=== PATIENT | female | born 1945 | race Caucasian/White ===

== ENCOUNTER 2016-12-07 13:12 | Observation (INO) | payer MEDICARE ==
[2016-12-07 17:22] LABS: Hematocrit 46 % (35-47); Hemoglobin 15.5 g/dl (12.0-16.0); Mean Corpuscular HGB Conc 34 g/dl (31-36); Mean Corpuscular Hemoglobin 31 pg (27-31); Mean Corpuscular Volume 91 fL (80-97); Mean Platelet Volume 10 um3 (7.4-10.4); Red Blood Count 5.02 10^6/ul (4.0-5.4); Red Cell Distribution Width 13 % (10.5-15); White Blood Count 8.9 10^3/ul (3.5-10.8)
[2016-12-07 17:23] LABS: Urine Bilirubin Negative (Negative); Urine Glucose Negative (Negative); Urine Nitrite Negative (Negative)
[2016-12-07 17:35] LABS: Albumin 4.1 g/dL (3.2-5.2); BUN/Creatinine Ratio 19.2 (8-20); Calcium 9.9 mg/dL (8.6-10.3); EGFR African American 67.4 (>60); EGFR Non-African American 52.4 (>60); Globulin 3.5 g/dL (2-4); Total Bilirubin 0.3 mg/dL (0.2-1.0); Total Protein 7.6 g/dL (6.4-8.9)
[2016-12-07 17:38] LABS: Potassium 4.3 mmol/L (3.5-5.0)
[2016-12-07 17:46] LABS: TSH (Thyroid Stimulating Horm) 0.23 mcIU/mL (0.34-5.60)
[2016-12-07] MEDS ORDERED: Ibuprofen TAB* 600 MG PO ONE (18:02)
--- NOTE | 2016-12-07 18:38 | RAD ---
HISTORY: Chest pain COMPARISONS: September 10, 2016 VIEWS:1: Single frontal portable view of the chest at 5:50 PM FINDINGS: LINES AND TUBES: None. CARDIOMEDIASTINAL SILHOUETTE: The cardiomediastinal silhouette is normal for portable technique. PLEURA: The costophrenic angles are sharp. No pleural abnormalities are noted. LUNG PARENCHYMA: The lungs are clear. ABDOMEN: The upper abdomen is clear. There is no subphrenic gas. BONES AND SOFT TISSUES: No bone or soft tissue abnormalities are noted. IMPRESSION: NO ACTIVE CARDIOPULMONARY DISEASE.
[2016-12-07] MEDS ORDERED: Albuterol HFA INHALER* 8 gm MDI INH PRN (18:40)
[2016-12-07] MEDS ORDERED: LORazepam INJ* 2 MG/ML 1 ML VIAL IV PUSH PRN (18:45)
[2016-12-07 18:46] LABS: Free T3 3.2 pg/mL (2.5-3.9)
[2016-12-07 18:47] LABS: Free T4 0.93 ng/dL (0.61-1.12)
--- NOTE | 2016-12-07 19:52 | ED ---
Nikhil Hardy Billy, scribed for Ata Lozano MD on 12/07/16 at 1555 . HPI Chest Pain - HPI Summary HPI Summary: Patient is a 71 year-old female coming to [facility] presenting with constant left anterior chest pain starting 3 days ago. Severity 8/10. Pain radiates to the epigastrium and neck. Pain is worse with movement of the chest wall. She reports nausea but denies any SOB, near-syncope, or vomiting. She states that she recently started taking Metoprolol 25mg BID. - History of Current Complaint Chief Complaint: EDChestWallPain Time Seen by Provider: 12/07/16 15:50 Hx Obtained From: Patient Onset/Duration: Started Days Ago, Still Present Timing: Constant Initial Severity: Moderate Current Severity: Moderate Pain Intensity: 8 Pain Scale Used: 0-10 Numeric Chest Pain Location: Left Anterior Chest Pain Radiates: Yes Chest Pain Radiates To:: Neck, Epigastric Aggravating Factor(s): Movement Alleviating Factor(s): Nothing Associated Signs and Symptoms: Positive: Nausea. Negative: Shortness of Breath , Syncope, Vomiting - Allergy/Home Medications Allergies/Adverse Reactions: Allergies Allergy/AdvReac Type Severity Reaction Status Date / Time Cephalexin [From Keflex] Allergy Severe Anxiety Verified 12/07/16 16:09 Codeine Allergy Intermediate Anxiety Verified 12/07/16 16:09 Bupropion [From Wellbutrin] Allergy Anxiety Verified 12/07/16 16:09 Dipyridamole [From Aggrenox] Allergy Anxiety Verified 12/07/16 16:09 Ezetimibe [From Vytorin] Allergy Anxiety Verified 12/07/16 16:09 Fenofibrate Allergy Anxiety Verified 12/07/16 16:09 [From Tricor 145mg] Fish Allergy Allergy Hives/Diff. Verified 12/07/16 16:09 Breathing/I tching Fluoxetine [From Prozac] Allergy Anxiety Verified 12/07/16 16:09 Gabapentin [From Neurontin] Allergy Anxiety Verified 12/07/16 16:09 Lecithin [From Tricor 145mg] Allergy Anxiety Verified 12/07/16 16:09 Moxifloxacin [From Avelox] Allergy Anxiety Verified 12/07/16 16:09 Naproxen Allergy Unknown Verified 12/07/16 16:09 Reaction Details Nefazodone [From Serzone] Allergy Anxiety Verified 12/07/16 16:09 Paroxetine [From Paxil] Allergy Anxiety Verified 12/07/16 16:09 Penicillin G Allergy Hives Verified 12/07/16 16:09 Simvastatin [From Vytorin] Allergy Anxiety Verified 12/07/16 16:09 Sulfa Drugs Allergy Hives Verified 12/07/16 16:09 Tetanus Toxoids Allergy orthrostati Verified 12/07/16 16:09 c Venlafaxine [From Effexor] Allergy Anxiety Verified 12/07/16 16:09 Aspirin [From Aggrenox] AdvReac Mild Anxiety Verified 12/07/16 16:09 Home Medications: Home Medications Metoprolol Tartrate TAB* [Lopressor TAB*] 1 tab PO BID 12/07/16 [History Confirmed 12/07/16] PMH/Surg Hx/FS Hx/Imm Hx Endocrine/Hematology History: Reports: Hx Anticoagulant Therapy - asa 81mg po daily, Hx Diabetes, Hx Thyroid Disease - hypothyroid Denies: Hx Sickle Cell Disease Cardiovascular History: Reports: Hx Hypertension Denies: Hx Congestive Heart Failure, Hx Pacemaker/ICD Comment Only: Other Cardiovascular Problems/Disorders - r Respiratory History: Reports: Hx Asthma, Hx Chronic Obstructive Pulmonary Disease (COPD) - emphysema, Other Respiratory Problems/Disorders - copd GI History: Reports: Hx Gastroesophageal Reflux Disease, Hx Hiatal Hernia, Hx Irritable Bowel, Hx Jaundice - childhood, Other GI Disorders - IBS, Hiatal Hernia History: Denies: Hx Renal Disease Musculoskeletal History: Reports: Hx Arthritis, Other Musculoskeletal History - fractured sternum Sensory History: Reports: Hx Contacts or Glasses - GLASSES Denies: Hx Hearing Aid Opthamlomology History: Reports: Hx Contacts or Glasses - GLASSES Neurological History: Denies: Hx Dementia, Hx Seizures, Other Neuro Impairments/Disorders Psychiatric History: Reports: Hx Anxiety - PANIC ATTACKS, Hx Depression Denies: Hx Substance Abuse - Cancer History Cancer Type, Location and Year: UTERINE 2013 Hx Chemotherapy: No - UTERINE CANCER 2013 Hx Radiation Therapy: No - Surgical History Surgery Procedure, Year, and Place: right ovary 1975, [facility], appy 1975, [facility], tubal 1975 d&c, 1975, gallbladder, 1977, [facility], cyst rght breast,20 YEARS AGO , multiple Hx Anesthesia Reactions: Yes - NAUSEA WITH GALLBLADDER SURGERY - Immunization History Date of Tetanus Vaccine: allergic Date of Influenza Vaccine: July 2016 Infectious Disease History: No Infectious Disease History: Reports: Hx Hepatitis - A CHILD, Hx Shingles, History Other Infectious Disease - Matheus Oconnell Denies: Hx Human Immunodeficiency Virus (HIV), Traveled Outside the [place] in Last 30 Days - Family History Known Family History: Positive: Cardiac Disease - ID with stents, Diabetes, Other - CVA - Social History Alcohol Use: None Hx Substance Use: No Substance Use Type: Reports: None Hx Tobacco Use: Yes Smoking Status (MU): Former Smoker Amount Used/How Often: 1.5 PACKS A DAY Length of Time of Smoking/Using Tobacco: 45 YEARS Have You Smoked in the Last Year: No Review of Systems Positive: Chest Pain Negative: Shortness Of Breath Positive: Abdominal Pain, Nausea. Negative: Vomiting Negative: Syncope All Other Systems Reviewed And Are Negative: Yes Physical Exam - Summary Physical Exam Summary: VITAL SIGNS: Reviewed. GENERAL: Patient is a well developed and nourished female who is lying comfortable in the stretcher. Patient is not in any acute respiratory distress. HEAD AND FACE: No signs of trauma. No ecchymosis, hematomas or skull depressions. No sinus tenderness. EYES: PERRLA, EOMI x 2, No injected conjunctiva, no nystagmus. EARS: Hearing grossly intact. Ear canals and tympanic membranes are within normal limits. MOUTH: Oropharynx within normal limits. NECK: Supple, trachea is midline, no adenopathy, no JVD, no carotid bruit, no c- spine tenderness, neck with full ROM. CHEST: Symmetric, Positive reproduction of chest pain in the left rib cage area. LUNGS: Clear to auscultation bilaterally. No wheezing or crackles. CVS: Regular rate and rhythm, S1 and S2 present, no murmurs or gallops appreciated. ABDOMEN: Soft, non-tender. No signs of distention. No rebound no guarding, and no masses palpated. Bowel sounds are normal. EXTREMITIES: FROM in all major joints, no edema, no cyanosis or clubbing. NEURO: Alert and oriented x 3. No acute neurological deficits. Speech is normal and follows commands. SKIN: Dry and warm Triage Information Reviewed: Yes Vital Signs On Initial Exam: Initial Vitals Temp Pulse Resp BP Pulse Ox 97.6 F 48 20 173/71 99 12/07/16 13:13 12/07/16 13:13 12/07/16 13:13 12/07/16 13:13 12/07/16 13:13 Vital Signs Reviewed: Yes Diagnostics - Vital Signs Vital Signs Temp Pulse Resp BP Pulse Ox 12/07/16 13:13 97.6 F 48 20 173/71 99 - Laboratory Lab Results: Lab Results 12/07/16 12/07/16 12/07/16 Range/Units 16:46 16:48 16:48 WBC 8.9 (3.5-10.8) 10^3/ul RBC 5.02 (4.0-5.4) 10^6/ul Hgb 15.5 (12.0-16.0) g/dl Hct 46 (35-47) % MCV 91 (80-97) fL MCH 31 (27-31) pg MCHC 34 (31-36) g/dl RDW 13 (10.5-15) % Plt Count 231 (150-450) 10^3/ul MPV 10 (7.4-10.4) um3 Neut % (Auto) 68.5 (38-83) % Lymph % (Auto) 22.7 L (25-47) % [place] % (Auto) 6.1 (1-9) % Eos % (Auto) 1.9 (0-6) % Baso % (Auto) 0.8 (0-2) % Absolute Neuts (auto) 6.1 (1.5-7.7) 10^3/ul Absolute Lymphs (auto) 2.0 (1.0-4.8) 10^3/ul Absolute Monos (auto) 0.5 (0-0.8) 10^3/ul Absolute Eos (auto) 0.2 (0-0.6) 10^3/ul Absolute Basos (auto) 0.1 (0-0.2) 10^3/ul Absolute Nucleated RBC 0.01 10^3/ul Nucleated RBC % 0.1 Sodium 136 (133-145) mmol/L Potassium 4.3 (3.5-5.0) mmol/L Chloride 101 (101-111) mmol/L Carbon Dioxide 29 (22-32) mmol/L Anion Gap 6 (2-11) mmol/L BUN 20 (6-24) mg/dL Creatinine 1.04 H (0.51-0.95) mg/dL Est GFR ( Amer) 67.4 (>60) Est GFR (Non-Af Amer) 52.4 (>60) BUN/Creatinine Ratio 19.2 (8-20) Glucose 94 (70-100) mg/dL Calcium 9.9 (8.6-10.3) mg/dL Magnesium 2.0 (1.9-2.7) mg/dL Total Bilirubin 0.30 (0.2-1.0) mg/dL AST 23 (13-39) U/L ALT 17 (7-52) U/L Alkaline Phosphatase 56 (34-104) U/L Total Creatine Kinase 38 (10-223) U/L CK-MB (CK-2) 1.0 (0.6-6.3) ng/mL Troponin I 0.00 (<0.04) ng/mL Total Protein 7.6 (6.4-8.9) g/dL Albumin 4.1 (3.2-5.2) g/dL Globulin 3.5 (2-4) g/dL Albumin/Globulin Ratio 1.2 (1-3) TSH Pending Urine Color Straw Urine Appearance Clear Urine pH 8.0 (5-9) Ur Specific [place] 1.005 L (1.010-1.030) Urine Protein Negative (Negative) Urine Ketones Negative (Negative) Urine Blood Negative (Negative) Urine Nitrate Negative (Negative) Urine Bilirubin Negative (Negative) Urine Urobilinogen Negative (Negative) Ur Leukocyte Esterase Negative (Negative) Urine Glucose Negative (Negative) Result Diagrams: 12/07/16 16:48 12/07/16 16:46 Lab Statement: Any lab studies that have been ordered have been reviewed, and results considered in the medical decision making process. - Radiology CXR Xray Interpretation: No Acute Changes Radiology Interpretation Completed By: Radiologist - EKG 1318 EKG Interpretation: sinus bradycardia 59 bpm, no ST elevation Re-Evaluation - Re-Evaluation First Eval Re-Evaluation Time: 17:28 Comment: Patient had an episode where her HR decreased to the 30s and she became dizzy. Chest Pain Course/Dx - Course Assessment/Plan: Patient is a 71 year-old female coming to [facility] presenting with constant left anterior chest pain starting 3 days ago. Severity 8/10. Pain radiates to the epigastrium and neck. Pain is worse with movement of the chest wall. She reports nausea but denies any SOB, near-syncope, or vomiting. She states that she recently started taking Metoprolol 25mg BID. Bloodwork WNL except for creatinine of 104 and BNP 156. TSH is 0.23. UA is negative. CXR shows no active cardiopulmonary disease. EKG shows sinus bradycardia [address] elevation. In the ER course, there were several episodes where the patient's HR decreased to the 30's and she became symptomatic with weakness and dizziness. Possible due to new BB. Therefore I discussed my physical exam findings and test results wiht Dr. Kiran who accepted the patient for admission. She is hemodynamically stable, A&Ox3. Heartrate at this time is 56 bpm. - Chest Pain Differential Diagnosis/HQI/PQRI: Acute ID, ACS, Angina, CHF, Chest Wall - Diagnoses Provider Diagnoses: Chest pain, Symptomatic bradycardia - Provider Notifications Discussed Care Of Patient With: Dr. Kiran (hospitalist) @ 1701: informed of the patient's presentation. Dr. Kiran (hospitalist) @ 1733: accepts admission. Discharge - Discharge Plan Condition: Stable Disposition: ADMITTED TO [facility] The documentation as recorded by the Nikhil henderson Billy accurately reflects the service I personally performed and the decisions made by me, Ata Lozano MD.
[2016-12-07] MEDS: Omeprazole CAP* 20 MG PO SCH (20:58)
[2016-12-07] MEDS: Amitriptyline TAB* 10 MG PO SCH (20:58)
[2016-12-07] MEDS ORDERED: Amitriptyline TAB* 25 MG PO SCH (21:00)
[2016-12-07] MEDS: Diazepam TAB(*) 5 MG PO PRN (21:01)
--- NOTE | 2016-12-07 21:09 | HP ---
ADMISSION HISTORY AND PHYSICAL: DATE OF ADMISSION: 12/07/16 PRIMARY CARE PROVIDER: Dr. Cohen. HEALTHCARE PROXY: Her . CODE STATUS: Full. CHIEF COMPLAINT: Chest pain. SOURCE OF INFORMATION: History obtained from interview with the patient and her . RELIABILITY: Good. HISTORY OF PRESENT ILLNESS: This is a 71-year-old female, last hospital stay in August for 1 day after presenting with near syncope thought secondary to multiple medications at home, who developed chest pain 3 days ago that was subxiphoid, radiating into her chest, worse on the left that began after lifting heavy things and reaching for pots and pans above her head. She described the pain as stabbing that was constant, lasting all day, not associated with diaphoresis, nausea, vomiting, shortness of breath. Yesterday the pain "got bad" and "described as more severe" also not associated with any other signs or symptoms. She took Motrin and overnight developed stomach pain which resolved by the time she woke up; however, the pain in her subxiphoid area radiating to her chest persisted, so she proceeded to [facility]. At [facility], she was evaluated and had a negative troponin, normal EKG; however, did have an episode of bradycardia in the 30s, during which she became lightheaded. For this reason, hospitalist service was consulted for admission. When seen by this author, the patient's heart rate was in the 50s and she was no longer symptomatic. She was started on metoprolol in August after her last discharge and her heart rate home has ranged from the 30s to 50s. The patient notes that at home when her heart rate is also in the 30s, she gets lightheaded , but has not developed chest pain. She denies any orthopnea or PND. PAST MEDICAL HISTORY: Includes type 2 diabetes, COPD, hypertension, hyperlipidemia, right vertebral occlusion, hypothyroidism, uterine cancer status post hysterectomy, PCOS, IBS, GERD, severe anxiety associated with agoraphobia. PAST SURGICAL HISTORY: Includes appendectomy, hysterectomy. HOME MEDICATIONS: 1. Sitagliptin 50 mg daily. 2. Probiotics 1 cap daily. 3. vitamins with iron 1 daily. 4. Omeprazole 40 mg twice daily. 5. Metoprolol tartrate 25 mg twice daily. 6. B12 one tab daily. 7. Levothyroxine 100 mcg daily. 8. Fluticasone nasal spray, 2 sprays both nares. 9. Diazepam 5 mg every 6 hours as needed for anxiety. 10. Aspirin 81 mg daily. 11. Elavil 10 mg twice daily. 12. Elavil 25 mg at bedtime. 13. Albuterol HFA 2 puffs every 4 hours as needed for shortness of breath or wheeze. ALLERGIES: Multiple allergies with reaction, mostly anxiety; KEFLEX, CODEINE, WELLBUTRIN, AGGRENOX, , FENOFIBRATE, PROZAC, GABAPENTIN, LECITHIN, MOXIFLOXACIN, SERZONE, PAROXETINE, SIMVASTATIN, EFFEXOR and ASPIRIN. FISH allergy causes hives. NAPROXEN has an unknown reaction, PENICILLIN G causes hives, SULFA DRUGS cause hives, and TETANUS TOXOIDS cause orthostasis. FAMILY HISTORY: Sister with CAD, mother with PA. SOCIAL HISTORY: He has a [id number] history of smoking, quit in 2004. Does not use any alcohol. Lives with her , was never fully employed. REVIEW OF SYSTEMS: As per HPI. Otherwise, all other systems negative. PHYSICAL EXAMINATION GENERAL: Sitting up in bed, interactive, pleasant, in no apparent distress. VITAL SIGNS: When seen by this author 140/80, heart rate 54, respiratory rate of 16, T-max in the emergency room is 97.6. HEENT: Oropharynx is clear. Moist mucous membranes. Sclerae anicteric. NECK: Non-elevated JVD. No cervical or supraclavicular lymphadenopathy. LUNGS: Clear without murmurs, rubs or gallops. Her lungs are clear to auscultation. HEART: Regular rate and rhythm. ABDOMEN: Soft. She has tenderness in the epigastric region as well as left flank overlying her lowest ribs. EXTREMITIES: Warm and well perfused. Trace lower extremity edema. She is alert and oriented x3 with cranial nerves intact. She displays active anxiety pertaining to the multiple aspects of hospital stay and ER stay including blood draws, results, staying in the hospital, medication allergies and general anxiety as well. DIAGNOSTIC STUDIES/LAB DATA: Labs reviewed: Notable for troponin I of 0.00, BNP 156. TSH is 0.23 with a free T4 of 0.93 and free T3 of 3.2. Creatinine 1.0. Urine is negative. Specific gravity of 1.005. Data reviewed: Chest x-ray: No active cardiopulmonary disease on my review. EKG: Sinus bradycardia. Ventricular rate of 59, normal limit axis and intervals. [address]ressions and ST elevations in 3 and aVF, unchanged from prior. ASSESSMENT AND PLAN: This is a 71-year-old female, past medical history as outlined above, presenting to the hospital with chest pain, found bradycardic, was symptomatic during her hospital stay. 1. Symptomatic bradycardia likely in the setting of metoprolol. Considering that she has been at home with heart rate in 30s, which is making her lightheaded, I do have a concern for fall. She will be admitted for observation. Hold medication, trend her blood pressure as this has been a problem in the past. Observed on telemetry. The patient does not need to be connected to transcutaneous pacers as her heart rate responds appropriately to exertion. 2. Hypertension. Hold metoprolol as indicated above. May need to restart or trial a different medication tomorrow based on blood pressure medication being held here. 3. Chest pain. Suspect muscular reproducible palpation in lowest ribs that developed after reaching for pots and pans and carrying heavy objects. We will check one more short interval troponin at 3 hours. I did not plan on stress test. 4. Chronic obstructive pulmonary disease. Continue home medications. Stable, not in exacerbation. 5. Type 2 diabetes. No need for continuous fingerstick glucose. The patient is averse to any new medications. We will hold on insulin. 6. Hypertension. As indicated above, continue home medications. Evaluate for new medications in the morning. 7. DVT prophylaxis. Ambulate ad eula. 8. Code status full. CC: Dr. Cohen; [place] [id number]/[facility] #: [id number] [facility]
[2016-12-08] MEDS ORDERED: Ibuprofen TAB* 600 MG PO PRN (05:48)
[2016-12-08] MEDS ORDERED: Levothyroxine TAB* 100 MCG TAB PO SCH (06:00)
[2016-12-08 07:49] VITALS: BP 108/68
[2016-12-08] MEDS: Omeprazole CAP* 20 MG PO SCH (07:59)
[2016-12-08] MEDS: Amitriptyline TAB* 10 MG PO SCH (07:59)
[2016-12-08] MEDS: Diazepam TAB(*) 5 MG PO PRN (08:03)
[2016-12-08] MEDS ORDERED: Fluticasone NASAL SPRAY 50MCG* 16 gm SPRAY BTL BOTH NARES SCH (09:00)
[2016-12-08] MEDS ORDERED: Aspirin Low Dose CHEW TAB* 81 MG PO SCH (09:00)
--- NOTE | 2016-12-09 03:13 | DS ---
DISCHARGE SUMMARY: DATE OF ADMISSION: 12/07/16 DATE OF DISCHARGE: 12/08/16 PRIMARY CARE PROVIDER: Dr. Cohen. PRIMARY DIAGNOSES: 1. Bradycardia. 2. Chest pain. SECONDARY DIAGNOSES: Include: 1. Severe anxiety. 2. Type 2 diabetes. 3. Chronic obstructive pulmonary disease. 4. Hypertension. 5. Hyperlipidemia. 6. Hypothyroidism. MEDICATIONS ON DISCHARGE: Include: 1. Sitagliptin 50 mg daily. 2. Probiotics 1 cap daily. 3. vitamins with iron 1 tab daily. 4. Omeprazole 40 mg twice daily. 5. B12 one tab daily. 6. Levothyroxine 100 mcg daily. 7. Fluticasone nasal spray 2 sprays daily. 8. Diltiazem 5 mg every 6 hours as needed for anxiety. 9. Aspirin 81 mg daily. 10. Elavil 10 mg twice daily. 11. Elavil 25 mg at bedtime. 12. Albuterol HFA 2 puffs every 4 hours as needed for shortness of breath and wheeze. Please note the discontinuation of metoprolol 25 mg twice daily p.r.n. PERTINENT LABORATORY DATA: During the course of this hospital stay includes: 1. Troponin I of 0.00 on two consecutive checks. 2. TSH 0.23 with a free T4 of 0.93 within normal limits and a free T3 of 3.2 also within normal limits. HISTORY OF PRESENT ILLNESS AND HOSPITAL COURSE: This is a 71-year-old female with a past medical history as outlined in the history of present illness on the day of admission, presented to the hospital with chest pain. She indicated that she developed this chest pain after lifting heavy objects, lifting and reaching over her head. It was worse with palpation, particularly in her subxiphoid area. There is low concern for ischemic event; however, during her stay in the emergency room developed bradycardia into the 30s where she became lightheaded. The patient indicated that at home she also developed bradycardia in the 30s and also was lightheaded, sometimes presyncopal. She was admitted to the hospital [facility] for further observation. Metoprolol was held. With holding of her beta-ingrid, heart rate returned to 60 to 70s in the morning. Her blood pressure remained well controlled and new agent was not started. Attention to blood pressure should be made on followup as she may likely redevelop hypertension on discharge off her beta- ingrid. At followup, please; evaluate hypertension, start new agent as needed. Reasons to return to the hospital included but not limited to recurrent or worsening symptoms including worsening chest pain, shortness of breath, lightheadedness, loss of consciousness, near loss of consciousness, nausea, vomiting, headache, fevers, chills, night sweats, inability to obtain or tolerate medications were discussed with the patient and her , they acknowledged understanding. TIME SPENT: Greater than 45 minutes was spent on the discharge of this patient with greater than half spent [id number] with the patient. CC: Dr. Cohen* [id number]/[facility] #: [id number] MTDD
== END 2016-12-08 13:45 | disposition home or self-care (01) ==
LOC: ED 13:12 → MEDTELE 17:33
PROVIDERS: ADMIT Internal Medicine; ATTEND Internal Medicine
DX: R00.1 Bradycardia, unspecified (principal); R07.9 Chest pain, unspecified; F41.9 Anxiety disorder, unspecified; E11.9 Type 2 diabetes mellitus without complications; Z79.84 Long term (current) use of oral hypoglycemic drugs; J44.9 Chronic obstructive pulmonary disease, unspecified; I10 Essential (primary) hypertension; E78.5 Hyperlipidemia, unspecified; E03.9 Hypothyroidism, unspecified; Z79.82 Long term (current) use of aspirin; Z79.899 Other long term (current) drug therapy; E28.2 Polycystic ovarian syndrome; K58.9 Irritable bowel syndrome, unspecified; K21.9 Gastro-esophageal reflux disease without esophagitis; Z85.42 Personal history of malignant neoplasm of other parts of uterus; Z87.891 Personal history of nicotine dependence; Z88.1 Allergy status to other antibiotic agents; Z88.5 Allergy status to narcotic agent; Z88.8 Allergy status to other drugs, medicaments and biological substances; Z88.0 Allergy status to penicillin
CPT/HCPCS: 36415; 71010; 80053; 81003; 82550; 82553; 83605; 83735; 83880; 84439; 84443; 84481; 84484; 85025; 93005; 99285; A9270-GY; G0378

== ENCOUNTER 2019-04-27 14:12 | Emergency (ER) | payer MEDICARE ==
--- NOTE | 2019-04-27 14:47 | UC ---
Upper Extremity HPI - HPI Summary HPI Summary: Patient is a 73 year old female, who present today to the urgent care with left shoulder/neck for past 3 weeks. She reports that she fell over the raised flower bed about 3 weeks ago and landed on her butt but felt a jarring sensation through her shoulder and neck and that has been hurting since. She tried ibuprofen without much relief. Pain mainly located in the left sided neck and trapezius area and is now radiating down her arm all the way to her fingers. There is some associated numbness in the fingers. She also reports that she notices some blood last night from her left fourth toe which is stopped now. She has neuropathy due to diabetes and is concerned about an infection. Shoulder pain is worse with any movement. - History of Current Complaint Chief Complaint: UCBackPain Stated Complaint: SHOULDER AND BACK PAIN Time Seen by Provider: 04/27/19 14:36 Hx Obtained From: Patient Pain Intensity: 9 - Allergies/Home Medications Allergies/Adverse Reactions: Allergies Allergy/AdvReac Type Severity Reaction Status Date / Time cephalexin [From Keflex] Allergy Severe Anxiety Verified 04/27/19 14:58 codeine Allergy Intermediate Anxiety Verified 04/27/19 14:58 aspirin Allergy Anxiety Verified 04/27/19 14:58 bupropion [From Wellbutrin] Allergy Anxiety Verified 04/27/19 14:58 dipyridamole [From Aggrenox] Allergy Anxiety Verified 04/27/19 14:58 ezetimibe [From Vytorin] Allergy Anxiety Verified 04/27/19 14:58 fenofibrate Allergy Anxiety Verified 04/27/19 14:58 Fish Containing Products Allergy Hives/Diff. Verified 04/27/19 14:58 Breathing/I tching fluoxetine Allergy Anxiety Verified 04/27/19 14:58 gabapentin Allergy Anxiety Verified 04/27/19 14:58 lecithin, soy Allergy Anxiety Verified 04/27/19 14:56 nefazodone Allergy Anxiety Verified 04/27/19 14:56 paroxetine [From Paxil] Allergy Anxiety Verified 04/27/19 14:56 Penicillins Allergy Hives Verified 04/27/19 14:56 simvastatin Allergy Anxiety Verified 04/27/19 14:56 Sulfa (Sulfonamide Allergy Anxiety Verified 04/27/19 14:56 Antibiotics) Tetanus Vaccines and Toxoid Allergy See Comment Verified 04/27/19 14:56 MS Aspirin [From Aggrenox] AdvReac Mild Anxiety Verified 12/07/16 16:09 Home Medications: Home Medications Mometasone Furoate [Nasonex] 50 mcg NA 04/27/19 [History] PMH/Surg Hx/FS Hx/Imm Hx - Additional Past Medical History Additional PMH: Past Medical History : Multiple allergies,. Hypertension, emphysema, type 2 diabetes mellitus, asthma, uterine cancer Past Surgical History: Multiple surgeries Family History : non contributory Social History : No alcoho use , former smoker, no drug use. Previously Healthy: Yes Other History Of: Anticoagulant Therapy - asa 81mg po daily - Surgical History Surgical History: Yes Surgery Procedure, Year, and Place: right ovary 1975, [facility], appy 1975, [facility], tubal 1975 d&c, 1975, gallbladder, 1977, [facility], cyst rght breast,20 YEARS AGO , multiple moles removed from skin - Family History Known Family History: Positive: Unknown, Cardiac Disease - [place] with stents, Diabetes, Other - CVA - Social History Alcohol Use: None Substance Use Type: None Smoking Status (MU): Former Smoker Amount Used/How Often: 1.5 PACKS A DAY Length of Time of Smoking/Using Tobacco: 45 YEARS Have You Smoked in the Last Year: No When Did the Patient Quit Smoking/Using Tobacco: 2004 Review of Systems All Other Systems Reviewed And Are Negative: Yes Constitutional: Positive: Negative Skin: Positive: Other - Left fourth toe small cut at the nail Eyes: Positive: Negative ENT: Positive: Negative Respiratory: Positive: Negative Cardiovascular: Positive: Negative Gastrointestinal: Positive: Negative Genitourinary: Positive: Negative Motor: Positive: Negative Neurovascular: Positive: Negative Musculoskeletal: Positive: Arthralgia - Left shoulder pain and neck pain, Decreased ROM - Left shoulder Neurological: Positive: Negative Psychological: Positive: Negative Is Patient Immunocompromised?: No Physical Exam - Summary Physical Exam Summary: Vital Signs Reviewed: Yes A+Ox3, no distress Eyes: Conjunctiva Clear ENT: Hearing grossly normal neck: supple Respiratory: Positive: No respiratory distress, No accessory muscle use Cardiovascular: skin color reflect adequate perfusion Musculoskeletal Exam: STREETER x 4 without difficulty Neurological: Positive: Alert, ambulatory without difficulty Psychological: Positive: Normal Response To Family Skin: Positive: Left fourth toe with a small cut, no signs of infection, no drainage or redness, no active bleeding C-spine: Tenderness to palpation is mainly noted at the left paraspinal muscles, left trapezius muscles. Limited and painful range of motion in all planes DTRs intact bilaterally in upper extremity Sensation intact bilaterally in upper extremity Spurling test is negative, Reza test is negative bilaterally left shoulder: No obvious deformity noted, tenderness to palpation is noted in trapezius and anterolateral aspect/greater tuberosity Limited and painful range of motion in all planes Supraspinatus: 4/5, normal distal sensation and pulses Triage Information Reviewed: Yes Vital Signs: Initial Vital Signs Temp 97.6 F 04/27/19 14:22 Pulse 99 04/27/19 14:22 Resp 18 04/27/19 14:22 BP 00/04/27/19 14:22 Pulse Ox 95 04/27/19 14:22 Vital Signs Reviewed: Yes Diagnostics - Radiology No standard instances Radiology Interpretation Completed By: Radiologist - X-rays of left shoulder: AC joint arthritis is noted.IMPRESSION: No fracture of the left shoulder is noted. X-rays of C-spine:Spinal canal appears to be intact. IMPRESSION: Degenerative disc disease at C5-C6 and C6-C7. Upper Extremity Course/Dx - Course Course Of Treatment: Today he obtained the x-rays of the left shoulder and the C-spine, X-rays of left shoulder: AC joint arthritis is noted.IMPRESSION: No fracture of the left shoulder is noted. X-rays of C-spine:Spinal canal appears to be intact. IMPRESSION: Degenerative disc disease at C5-C6 and C6-C7. Left shoulder pain due to strain including strain of the left paraspinal cervical muscles and the left trapezius muscles. 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 She will take ibuprofen as needed and follow up with orthopedics for further evaluation. She will start physical therapy. Left 4t toe was cleaned and antibiotic was applied with bandaid - Differential Dx/Diagnosis Provider Diagnosis: Left shoulder pain, Left shoulder strain, Degenerative disc disease, cervical, Cervical radiculopathy, Injury of left toe Discharge - Sign-Out/Discharge Documenting (check all that apply): Patient Departure All imaging exams completed and their final reports reviewed: Yes - Discharge Plan Condition: Stable Disposition: HOME Patient Education Materials: Rotator Cuff Injury (ED), Degenerative Disc Disease (ED), Arthritis (ED) Referrals: Tomás Huff MD [Medical Doctor] - 2 Days Luis E Cohen DO [Primary Care Provider] - 1 Week Additional Instructions: ibuprofen as needed and follow up with orthopedics for further evaluation. start physical therapy. Wound care of left toe Patients blood pressure slightly high in Urgent care today , she did not take her blood pressure medication today , plan follow up with PCP for better control Return to Urgent care / ER if symptoms get worse. - Billing Disposition and Condition Condition: STABLE Disposition: Home
[2019-04-27 14:48] VITALS: BP 158/98
== END 2019-04-27 16:06 | disposition home or self-care (01) ==
LOC: UCEAST 14:12
DX: S46.912A Strain of unspecified muscle, fascia and tendon at shoulder and upper arm level, left arm, initial encounter (principal); S99.922A Unspecified injury of left foot, initial encounter; W01.0XXA Fall on same level from slipping, tripping and stumbling without subsequent striking against object, initial encounter; Y92.017 Garden or yard in single-family (private) house as the place of occurrence of the external cause; M50.10 Cervical disc disorder with radiculopathy, unspecified cervical region; I10 Essential (primary) hypertension; E11.9 Type 2 diabetes mellitus without complications; Z88.5 Allergy status to narcotic agent; Z88.0 Allergy status to penicillin; Z88.2 Allergy status to sulfonamides; Z79.01 Long term (current) use of anticoagulants; Z87.891 Personal history of nicotine dependence
CPT/HCPCS: 72040; 99212; G0463

== ENCOUNTER 2019-11-19 22:41 | Emergency (ER) | payer MEDICARE ==
--- NOTE | 2019-11-20 02:14 | ED ---
Hypertension - HPI Summary HPI Summary: Pt is a 74 y/o F presenting to the ED with a chief complaint of high blood pressure. She states this has been going on all day on 11/19/2019. She began feeling lightheaded so she took her blood pressure, and noted it was 199/101. She took her PRN BP pill and notes it did not help. She reports blurred vision, headaches, and fatigue. She notes shes off-kilter when she walks, and shes chronically SOB from former smoking. She denies diplopia, weakness, abd pain, chest pain, N/V/D, fever, chills, hematuria, dysuria, burning with urination, or rash. - History of Current Complaint Chief Complaint: EDHypertension Stated Complaint: HIGH BP,SOB PER PT Time Seen by Provider: 11/20/19 02:05 Hx Obtained From: Patient Onset/Duration: Started Hours Ago, Still Present Timing: Constant, Lasting Hours Aggravating Factor(s): Nothing Alleviating Factor(s): Nothing Associated Signs & Symptoms: Vision Changes, Headaches, Dizziness - lightheadedness, SOB - chronic - Allergies/Home Medications Allergies/Adverse Reactions: Allergies Allergy/AdvReac Type Severity Reaction Status Date / Time cephalexin [From Keflex] Allergy Severe Anxiety Verified 11/19/19 22:52 codeine Allergy Intermediate Anxiety Verified 11/19/19 22:52 bupropion [From Wellbutrin] Allergy Anxiety Verified 11/19/19 22:52 dipyridamole [From Aggrenox] Allergy Anxiety Verified 11/19/19 22:52 ezetimibe [From Vytorin] Allergy Anxiety Verified 11/19/19 22:52 fenofibrate Allergy Anxiety Verified 11/19/19 22:52 Fish Containing Products Allergy Hives/Diff. Verified 11/19/19 22:52 Breathing/I tching fluoxetine Allergy Anxiety Verified 11/19/19 22:52 gabapentin Allergy Anxiety Verified 11/19/19 22:52 lecithin, soy Allergy Anxiety Verified 11/19/19 22:52 nefazodone Allergy Anxiety Verified 11/19/19 22:52 paroxetine [From Paxil] Allergy Anxiety Verified 11/19/19 22:52 Penicillins Allergy Hives Verified 11/19/19 22:52 simvastatin Allergy Anxiety Verified 11/19/19 22:52 Sulfa (Sulfonamide Allergy Anxiety Verified 11/19/19 22:52 Antibiotics) Tetanus Vaccines and Toxoid Allergy See Comment Verified 11/19/19 22:52 PMH/Surg Hx/FS Hx/Imm Hx Previously Healthy: Yes Endocrine/Hematology History: Reports: Hx Anticoagulant Therapy - asa 81mg po daily, Hx Diabetes - type 2 dm, Hx Thyroid Disease - hypothyroid Denies: Hx Sickle Cell Disease Cardiovascular History: Reports: Hx Hypercholesterolemia, Hx Hypertension Denies: Hx Congestive Heart Failure, Hx Pacemaker/ICD Comment Only: Other Cardiovascular Problems/Disorders - r Respiratory History: Reports: Hx Asthma, Hx Chronic Bronchitis, Hx Chronic Obstructive Pulmonary Disease (COPD) - emphysema, Other Respiratory Problems/ Disorders - copd GI History: Reports: Hx Gastroesophageal Reflux Disease, Hx Hiatal Hernia, Hx Irritable Bowel, Hx Jaundice - childhood, Other GI Disorders - Bleeding hemorrhoids History: Denies: Hx Renal Disease Musculoskeletal History: Reports: Hx Arthritis, Other Musculoskeletal History - fractured sternum Sensory History: Reports: Hx Contacts or Glasses - GLASSES Denies: Hx Hearing Aid Opthamlomology History: Reports: Hx Contacts or Glasses - GLASSES Neurological History: Reports: Hx Transient Ischemic Attacks (TIA) Denies: Hx Dementia, Hx Seizures, Other Neuro Impairments/Disorders Psychiatric History: Reports: Hx Anxiety, Hx Depression, Hx Panic Disorder Denies: Hx Substance Abuse - Cancer History Cancer Type, Location and Year: UTERINE 2013 Hx Chemotherapy: No - UTERINE CANCER 2013 Hx Radiation Therapy: No - Surgical History Surgery Procedure, Year, and Place: right ovary 1975, [facility], appy 1975, [facility], tubal 1975 d&c, 1975, gallbladder, 1977, [facility], cyst rght breast,20 YEARS AGO , multiple moles removed from skin Hx Anesthesia Reactions: Yes - NAUSEA WITH GALLBLADDER SURGERY - Immunization History Date of Tetanus Vaccine: allergic to vaccine Date of Influenza Vaccine: July 2016 Immunizations Up to Date: Yes Infectious Disease History: No Infectious Disease History: Reports: Hx Hepatitis - A CHILD, Hx Shingles, History Other Infectious Disease - Matheus Oconnell Denies: Hx Clostridium Difficile, Hx Human Immunodeficiency Virus (HIV), Hx of Known/Suspected MRSA, Hx Tuberculosis, Traveled Outside the [place] in Last 30 Days - Family History Known Family History: Positive: Cardiac Disease - [place] with stents, Diabetes, Other - CVA, TIA - Social History Alcohol Use: None Hx Substance Use: No Substance Use Type: Reports: None Hx Tobacco Use: Yes Smoking Status (MU): Former Smoker Amount Used/How Often: 1.5 PACKS A DAY Length of Time of Smoking/Using Tobacco: 45 YEARS Have You Smoked in the Last Year: No Review of Systems Positive: Fatigue. Negative: Fever, Chills Positive: Blurred Vision. Negative: Diplopia Negative: Chest Pain Positive: Shortness Of Breath - chronic Negative: Abdominal Pain, Vomiting, Diarrhea, Nausea Negative: burning, dysuria, hematuria Negative: Rash Neurological: Other - lightheadedness, dizziness Positive: Headache. Negative: Weakness All Other Systems Reviewed And Are Negative: Yes Physical Exam - Summary Physical Exam Summary: Appearance: Well-appearing, Well-nourished, lying in bed comfortably Skin: Warm, dry, no obvious rash Eyes: sclera anicteric, no conjunctival pallor. Normal fundoscopic exam with sharp disc margins. ENT: mucous membranes moist, pharynx appears normal Neck: Supple, nontender Respiratory: Clear to auscultation, no signs of respiratory distress Cardiovascular: Normal S1, S2. No murmurs. Normal distal pulses in tibial and radial bilaterally. Abdomen: Soft, nontender, normal active bowel sounds present Musculoskeletal: Normal, Strength/ROM Intact Neurological: A&Ox3, awake and alert, mentation is normal, speech is fluent and appropriate Psychiatric: affect is normal, does not appear anxious or depressed Triage Information Reviewed: Yes Vital Signs On Initial Exam: Initial Vitals Temp Pulse Resp BP Pulse Ox 97.7 F 65 16 188/110 96 11/19/19 22:45 11/19/19 22:45 11/19/19 22:45 11/19/19 22:45 11/19/19 22:45 Vital Signs Reviewed: Yes - Prabha Coma Scale Best Eye Response: 4 - Spontaneous Best Motor Response: 6 - Obeys Commands Best Verbal Response: 5 - Oriented Coma Scale Total: 15 Procedures - Sedation Patient Received Moderate/Deep Sedation with Procedure: No Diagnostics - Vital Signs Vital Signs Temp Pulse Resp BP Pulse Ox 11/20/19 01:05 97.0 F 56 16 178/90 96 11/19/19 22:45 97.7 F 65 16 188/110 96 - Laboratory Result Diagrams: 11/20/19 02:52 11/20/19 02:52 Lab Statement: Any lab studies that have been ordered have been reviewed, and results considered in the medical decision making process. - CT Brain CT CT Interpretation Completed By: Radiologist Summary of CT Findings: 1. 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 2. Otherwise negative noncontrast head CT. ED physician has reviewed this report. - EKG 2252 Cardiac Rate: NL - 61 EKG Rhythm: Sinus Rhythm ST Segment: Normal Ectopy: None Summary of EKG Findings: EKG at 2252 shows NSR at 61 BPM, P waves, QRS complex, and T waves are within normal limits, T waves and intervals are normal, no ischemic changes. This is a normal EKG. ED physician has reviewed and interpreted this EKG. Hypertension Course/Dx - Course Course Of Treatment: Pt is a 74 y/o F presenting to the ED with a chief complaint of high blood pressure. She states this has been going on all day on . She began feeling lightheaded so she took her blood pressure, and noted it was 199/101. She took her PRN BP pill and notes it did not help. She reports blurred vision, headaches, and fatigue. She notes shes off-kilter when she walks, and shes chronically SOB from former smoking. She denies diplopia, weakness, abd pain, chest pain, N/V/D, fever, chills, hematuria, dysuria, burning with urination, or rash. EKG at 2252 shows NSR at 61 BPM, P waves, QRS complex, and T waves are within normal limits, T waves and intervals are normal , no ischemic changes. This is a normal EKG. ED physician has reviewed and interpreted this EKG. Pt's physical exam is nml. Brain CT shows: 1. 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 2. Otherwise negative noncontrast head CT. Pt will be d/c'ed with dx of dizziness. She is feeling better and is agreeable to this plan. - Diagnoses Provider Diagnoses: Dizziness Discharge ED - Sign-Out/Discharge Documenting (check all that apply): Patient Departure - Discharge Plan Condition: Stable Disposition: HOME Patient Education Materials: Dizziness (ED) Referrals: Luis E Cohen DO [Primary Care Provider] - 1 Week Additional Instructions: The tests we ran tontodd did not show any abnormalities that I could link to your present symptoms. On the CT scan there was an incidental finding - a tiny area that could respresent a past stroke - but again nothing related to your current issues. For now you do not need any specific treatment, but I would recommend making an appointment with your regular doctor to go over things and discuss whether further workup of the small abnormality on the CT would be worthwhile pursuing. - Billing Disposition and Condition Condition: STABLE Disposition: Home - Attestation Statements Document Initiated by Antonio: Yes Documenting Scribe: Jaz Crum Provider For Whom Antonio is Documenting (Include Credential): Saeed Billingsley MD. Scribe Attestation: Jaz Hardy, tennilleed for Seaed Billingsley MD. on 11/20/19 at 2042. Scribe Documentation Reviewed: Yes Provider Attestation: The documentation as recorded by the Jaz hendesron accurately reflects the service I personally performed and the decisions made by me, Saeed Billingsley MD. Status of Scribe Document: Viewed
[2019-11-20] MEDS ORDERED: Lisinopril TAB* 10 MG PO ONE (02:26)
[2019-11-20 03:02] LABS: ABS Basophils 0.1 10^3/ul (0-0.2); ABS Eosinophils 0.4 10^3/ul (0-0.6); ABS Monocytes 0.7 10^3/ul (0-0.8); ABS Neutrophils 3.7 10^3/ul (1.5-7.7); Eosinophil % 5.7 %; Hematocrit 44 % (35-47); Hemoglobin 15.5 g/dL (12.0-16.0); Lymphocyte % 29.5 %; Mean Corpuscular HGB Conc 35 g/dL (31-36); Mean Corpuscular Hemoglobin 32 pg (27-31); Mean Corpuscular Volume 92 fL (80-97); Platelet Count 244 10^3/uL (150-450); Red Blood Count 4.84 10^6 /uL (3.70-4.87); Red Cell Distribution Width 13 % (10-15); White Blood Count 6.9 10^3/uL (3.5-10.8)
[2019-11-20 03:23] LABS: Albumin 4.2 g/dL (3.2-5.2); Albumin/Globulin Ratio 1.4 (1-3); BUN/Creatinine Ratio 12.4 (8-20); Calcium 9.9 mg/dL (8.6-10.3); EGFR African American 52.8 (>60); EGFR Non-African American 43.6 (>60); Globulin 2.9 g/dL (2-4); Potassium 4.1 mmol/L (3.5-5.0); Total Bilirubin 0.4 mg/dL (0.2-1.0); Total Protein 7.1 g/dL (6.4-8.9)
[2019-11-20 04:09] LABS: Erythrocyte Sed Rate 8 mm/Hr (0-29)
[2019-11-20 04:59] LABS: Urine Appearance Clear; Urine Bilirubin Negative (Negative); Urine Blood Negative (Negative); Urine Color Straw; Urine Glucose Negative (Negative); Urine Ketones Negative (Negative); Urine Nitrite Negative (Negative); Urine Protein Negative (Negative); Urine Specific Gravity 1.005 (1.010-1.030); Urine Urobilinogen Negative (Negative)
[2019-11-20 05:01] VITALS: BP 169/125
== END 2019-11-20 05:00 | disposition home or self-care (01) ==
LOC: ED 22:41
DX: R42 Dizziness and giddiness (principal); H53.8 Other visual disturbances; R51 Headache; R53.83 Other fatigue; R06.02 Shortness of breath; E11.9 Type 2 diabetes mellitus without complications; I10 Essential (primary) hypertension; Z79.01 Long term (current) use of anticoagulants; Z79.82 Long term (current) use of aspirin; Z88.2 Allergy status to sulfonamides; Z88.7 Allergy status to serum and vaccine; Z88.8 Allergy status to other drugs, medicaments and biological substances; Z88.1 Allergy status to other antibiotic agents; Z88.5 Allergy status to narcotic agent; Z88.0 Allergy status to penicillin; Z91.013 Allergy to seafood; Z87.891 Personal history of nicotine dependence
CPT/HCPCS: 36415; 70450; 80053; 81003; 83605; 85025; 85652; 93005; 99283; A9270-GY

== ENCOUNTER 2020-01-03 16:00 | Emergency (ER) | payer MEDICARE ==
--- OUTSIDE RECORDS SUMMARY | 2020-01-03 16:06 | XMS REPORT | Continuity of Care Document ---
:1945 External Reference #:[id number] Author Name Luis E Cohen D.O. Address [address] [place] [id number] Care Team Providers Name Role Phone Marnie Patton DPM - Reinsurance Claim Analyst Care Team Information [facility] - Care Team Information [facility] [phone] Gastroenterology Shanon Slade MD - Dermatology Care Team Information [facility]-Software Systems [facility] - Care Team Information [facility] [phone] Obstetrics & Gynecology Yuri Johnson MD - Neurological Care Team Information [facility] Surgery Staci Menjivar MD - Gynecologic Care Team Information [facility] [phone] Oncology [facility] - Gastroenterology Care Team Information [facility] Problems Active Problems Provider Date Essential hypertension Shanta Cervantes Onset: 05/29/2012 Generalized anxiety disorder Marisela Andrea RPA-C Onset: 12/03/2014 Hypothyroidism Marisela Andrea RPA-C Onset: 12/03/2014 Gastroesophageal reflux disease Marisela Andrea RPA-C Onset: 12/03/2014 Disorder associated with type 2 diabetes Marisela Andrea RPA-C Onset: 02/2015 mellitus Type 2 diabetes mellitus Luis E Cohen D.O. Onset: 01/11/2016 Cramp and spasm Luis E Cohen D.O. Onset: 01/11/2016 Chronic obstructive lung disease Luis E Cohen D.O. Onset: 08/24/2016 Palpitations Luis E Cohen D.O. Onset: 09/15/2016 Social History Type Date Description Comments Sex Unknown Tobacco Use Start: Unknown End: Does Not Currently Smoke, (quit Oct 2004) Unknown But Smoked 2Packs Per Day For 46Yrs ETOH Use Denies alcohol use Recreational Drug Use Denies Drug Use Tobacco Use Start: Unknown End: Patient is a former Unknown smoker Smoking Status Reviewed: 08/01/19 Patient is a former smoker Allergies, Adverse Reactions, Alerts Active Allergies Reaction Severity Comments Date PCN 08/17/2006 Tetanus 08/17/2006 Sulfa 08/17/2006 Paxil 08/17/2006 Wellbutrin 08/17/2006 Effexor 08/17/2006 Prozac 08/17/2006 Serzone 08/17/2006 Zocor 08/17/2006 Tricor 08/17/2006 Zetia 08/17/2006 Aggrenox 08/17/2006 Neurontin 08/17/2006 Naprosyn 08/17/2006 Aleve 08/17/2006 E-Mycin 08/17/2006 vytorin 08/20/2006 ketek 08/20/2006 Shellfish 06/25/2006 Medications Active Medications SIG Qnty Indications Ordering Date Provider Bryce Hall 1 puff once a day; 90inh J44.9 [facility], rinse mouth after use Dimas Kimbrough 0 200-25mcg/Inh Aerosol Levothyroxine 1 by mouth every day 4 52tabs E03.9 [facility], Sodium days a week Dimas Kimbrough 8 75mcg Tablets Levothyroxine take 1 tablet by mouth 38tabs E03.9 [facility], Sodium 3 days a week on Dimas Kimbrough 8 88mcg sunday, sunday and Tablets sunday. Meclizine HCL take 1 tablet by mouth 30tabs [facility], 25mg 3 times per day as Dimas Kimbrough 8 Tablets needed for sensation of motion Famotidine take 1 tablet by mouth 180tabs E11.9 [facility], 40mg twice a day for Dimas Kimbrough 8 Tablets gastroesophageal reflux disease Nourish Beaute Hair 2 by mouth daily Unknown Growth Vitamins 7 Amitriptyline HCL 1 by mouth 3 times a 270tabs [facility], day Kimberley KimbroughOToan 7 10mg Tablets Januvia take 1/2 tab po daily E11.9 [facility], 100mg Lolita Kimbrough.O. 7 Tablets Omeprazole take 1 capsule by 90caps E11.9 [facility], 40mg mouth daily for acid Dimas Kimbrough 6 Capsules reflux Eye Vitamins With one po daily Unknown Lutein 6 Freestyle Lite Test or appropriate testing 200units R73.01 [facility], strips for patients Dimas Kimbrough 5 Strips device, test 1-4 times daily as directed Oximeter Check oxygen levels as 1units 786.09 [place], needed when feeling Taz Jade 4 short of breath Proair HFA use 1 to 2 puffs 4 17gm [facility], times a day as needed Dimas Kimbrough 4 108(90Base) mcg/Act for shortness of Aerosol breath Aspir-81 take one tab daily to 90tabs [facility], 81mg reduce risk heart Taz Jade [address] null/stroke. Valium 1 tablet by mouth 90tabs F41.1 [facility], 5mg Tablets three times a day as Lolita Kimbrough.O. 1 needed for panic attacks Glucometer use as directed 1units 790.21 payal 6 Glucometer Test use to check blood 1Box 790.21 [facility], Strips sugars 3 times a day Dimas Kimbrough 6 Lancets To Prick use as directed 790.21 [facility] Glucose # one 6 Test box Metoprolol Tartrate 1 by mouth as needed 90tabs I10 [facility], for palpitations Kimberley KimbroughOToan 0 25mg Tablets Immunizations CPT Code Status Date Vaccine Lot # [id number] Given 08/01/2019 Influenza Virus Vaccine, Quadrivalent, Split, [id number] Preservative Free 71909 Given 07/05/2018 Influenza Virus Vaccine, Quadrivalent, Split, [id number] Preservative Free 27020 Given 07/13/2017 Influenza Vaccine Split Virus Preservative Free [id number] Im Use (hi-dose) 67496 Given 08/24/2016 Influenza Virus Vaccine, Quadrivalent, Split, [id number] Preservative Free 01864 Given 09/07/2015 Influenza Virus Vaccine, Quadrivalent, Split, [id number] Preservative Free 95384 Given 05/21/2015 Prevnar 13 [id number] 05369 Given 09/11/2014 Influenza Vaccine Split Virus Preservative Free [id number] Im Use (hi-dose) 83270 Given 07/18/2013 Flu, Split Virus 3Yrs [id number] 65935 Given 08/26/2012 Flu, Split Virus 3Yrs [id number] 15434 Given 08/16/2011 Flu, Split Virus 3Yrs 80332 Given 08/23/2010 Pneumococcal Immunization 74800 Given 10/08/2007 Flu, Split Virus 3Yrs [id number] 70658 Given 09/19/2006 Flu, Split Virus 3Yrs [id number] Vital Signs Date Vital Result Comment 12/10/2019 3:22pm BP Systolic 120 mmHg R arm sitting, RN BP Diastolic 60 mmHg R arm sitting, RN BP Systolic Recheck 121 mmHg R arm sitting, electronic cuff BP Diastolic Recheck 55 mmHg R arm sitting, electronic cuff Heart Rate 46 /min Height 63.25 inches 5'3.25" Weight 197.00 lb BMI (Body Mass Index) 34.6 kg/m2 08/01/2019 2:42pm BP Systolic 136 mmHg BP Diastolic 84 mmHg Results Test Acquired Date Facility Test Result H/L Range Note Laboratory test 12/10/2019 In House Hemoglobin A1c 6.0 finding Laboratory test 11/20/2019 [facility] Lactic Acid 1.1 mmol/L Normal 0.5-2.0 1 finding [phone] Comp Metabolic 11/20/2019 [facility] Sodium 137 mmol/L Normal 135- 145 Panel [phone] Potassium 4.1 mmol/L Normal 3.5-5.0 Chloride 102 mmol/L Normal 101-111 Co2 Carbon Dioxide 27 mmol/L Normal 22-32 Anion Gap 8 mmol/L Normal 2-11 Glucose 111 mg/dL High 70-100 Blood Urea Nitrogen 15 mg/dL Normal 6-24 Creatinine 1.21 mg/dL High 0.51-0.95 BUN/Creatinine Ratio 12.4 Normal 8-20 Calcium 9.9 mg/dL Normal 8.6-10.3 Total Protein 7.1 g/dL Normal 6.4-8.9 Albumin 4.2 g/dL Normal 3.2-5.2 Globulin 2.9 g/dL Normal 2-4 Albumin/Globulin Ratio 1.4 Normal 1-3 Total Bilirubin 0.40 mg/dL Normal 0.2-1.0 Alkaline Phosphatase 56 U/L Normal 34-104 Alt 29 U/L Normal 7-52 Ast 27 U/L Normal 13-39 Egfr Non- 43.6 >60 Egfr 52.8 >60 2 CBC Auto Diff 11/20/2019 [facility] White Blood 6.9 10^3/uL Normal 3.5-10.8 [phone] Count Red Blood Count 4.84 10^6/uL Normal 3.70-4.87 Hemoglobin 15.5 g/dL Normal 12.0-16.0 Hematocrit 44 % Normal 35-47 Mean Corpuscular Volume 92 fL Normal 80-97 Mean Corpuscular Hemoglobin 32 pg High 27-31 Mean Corpuscular HGB Conc 35 g/dL Normal 31-36 Red Cell Distribution Width 13 % Normal 10-15 Platelet Count 244 10^3/uL Normal 150-450 Mean Platelet Volume 9.0 fL Normal 7.4-10.4 Abs Neutrophils 3.7 10^3/uL Normal 1.5-7.7 Abs Lymphocytes 2.0 10^3/uL Normal 1.0-4.8 Abs Monocytes 0.7 10^3/uL Normal 0-0.8 Abs Eosinophils 0.4 10^3/uL Normal 0-0.6 Abs Basophils 0.1 10^3/uL Normal 0-0.2 Abs Nucleated RBC 0.0 10^3/uL Granulocyte % 54.0 % Lymphocyte % 29.5 % Monocyte % 9.6 % Eosinophil % 5.7 % Basophil % 1.2 % Nucleated Red Blood Cells % 0.0 Laboratory test 11/20/2019 [facility] Erythrocyte Sed 8 mm/Hr Normal 0-29 finding [phone] Rate Urinalysis Profile 11/20/2019 [facility] Urine Color Straw [phone] Urine Appearance Clear Urine Specific [place] 1.005 Low 1.010-1.030 Urine pH 6.0 Normal 5-9 Urine Urobilinogen Negative Negative Urine Ketones Negative Negative Urine Protein Negative Negative Urine Leukocytes Negative Negative Urine Blood Negative Negative Urine Nitrite Negative Negative Urine Bilirubin Negative Negative Urine Glucose Negative Negative 1 [facility] Severe Sepsis and Septic Shock Management Bundle Measure requires all lactic acids initially measuring >2.0 mmol/L be repeated. 2 Because ethnic data is not always readily available, this report includes an eGFR for both -Americans and non- Americans. The National Kidney Disease Education Program (NKDEP) does not endorse the use of the MDRD equation for patients that are not between the ages of 18 and 70, are , have extremes of body size, muscle mass, or nutritional status, or are non- or non-. According to the National Kidney Foundation, irrespective of diagnosis, the stage of the disease is based on the level of kidney function: Stage Description GFR(mL/min/1.73 m(2)) 1 Kidney damage with normal or decreased GFR 90 2 Kidney damage with mild decrease in GFR 60-89 3 Moderate decrease in GFR 30-59 4 Severe decrease in GFR 15-29 5 Kidney failure <15 (or dialysis) Procedures Date Code Description Status 12/10/2019 20117 Spirometry Completed 09/19/2019 [id number] Mammogram Completed 08/01/2019 [id number] Diabetic Foot Exam Completed 06/19/2019 [id number] Diabetic Retinal Eye Exam Completed 09/04/2016 [id number] Colonoscopy Completed Medical Devices Description No Information Available Encounters Type Date Location Provider Dx Diagnosis Office Visit 08/01/2019 Main Office Luis E Cohen, M25.512 Pain in left 2:30p D.O. shoulder E11.9 Type 2 diabetes mellitus without complications E03.9 Hypothyroidism, unspecified F41.1 Generalized anxiety disorder I10 Essential (primary) hypertension I49.9 Cardiac arrhythmia, unspecified R00.2 Palpitations R51 Headache Z23 Encounter for immunization Z41.8 Encntr for oth proc for purpose oth than remedy health state Assessments Date Code Description Provider 12/10/2019 Z68.34 Body mass index (BMI) 34.0-34.9, adult Luis E Cohen D.O. 12/10/2019 J44.9 Chronic obstructive pulmonary disease, Luis E Cohen D.O. unspecified 12/10/2019 E11.9 Type 2 diabetes mellitus without Luis E Cohen D.O. complications 08/01/2019 M25.512 Pain in left shoulder Luis E Cohen D.O. 08/01/2019 E11.9 Type 2 diabetes mellitus without Luis E Cohen D.OToan complications 08/01/2019 E03.9 Hypothyroidism, unspecified Luis E Cohen D.OToan 08/01/2019 F41.1 Generalized anxiety disorder Luis E Cohen D.O. 08/01/2019 I10 Essential (primary) hypertension Luis E Cohen D.O. 08/01/2019 I49.9 Cardiac arrhythmia, unspecified Luis E Cohen D.OToan 08/01/2019 R00.2 Palpitations Luis E Cohen D.OToan 08/01/2019 R51 Headache Luis E Cohen D.OToan 08/01/2019 Z23 Encounter for immunization Luis E Cohen D.O. 08/01/2019 Z41.8 Encounter for other procedures for purposes Luis E Cohen D.O. other than remedying health state Plan of Treatment 12/10/2019 - Luis E Cohen D.O.Z68.34 Body mass index (BMI) 34.0-34.9, fiyqnY63.9 Chronic obstructive pulmonary disease, unspecifiedNew Medication: Breo Ellipta 200-25 mcg/Inh - 1 puff once a day; rinse mouth after useE11.9 Type 2 diabetes mellitus without complicationsFollow up:3 month recheck diabetes Functional Status Description No Information Available Mental Status Description No Information Available Referrals Description No Information Available
[2020-01-03] MEDS ORDERED: NS 0.9% 1000 ML** 1,000 ML IV ONE ×2 (16:27→16:42)
--- NOTE | 2020-01-03 16:30 | ED ---
GI/ HPI - HPI Summary HPI Summary: 74 year old F arriving via private car to [facility] accompanied by complains of nausea/vomiting/diarrhea since Saturday 12/30. Patient vomited once yesterday. She hasn't vomited today. Patient feels dehydrated, weak, dizzy, light headed. She hasn't been able to drink a lot today. Patient has had diarrhea twice today. She reports mild abdominal pain. The patient rates the pain 4/10 in severity. Symptoms aggravated by nothing. Symptoms alleviated by nothing. She states she recently had the stomach bug. states they have had trouble with their furnace and carbon monoxide in their house before. Patient states she had a headache a few days ago. No headache, cough, sore throat currently. Medications reviewed. Allergies noted. Home Medications Medication Instructions Recorded Confirmed Type Amitriptyline TAB* [Elavil TAB*] 25 mg PO BEDTIME 09/03/13 12/07/16 History Aspirin 81 mg CHEW TAB* 81 mg PO DAILY 09/03/13 12/07/16 History Mecobalamin [B12 Active] 1 mg PO DAILY 09/03/13 12/07/16 History Albuterol HFA INHALER* [Ventolin 2 puff INH Q4H PRN 09/11/16 12/07/16 History HFA Inhaler*] Amitriptyline TAB* [Elavil TAB*] 10 mg PO BID 09/11/16 12/07/16 History Diazepam TAB(*) [Valium TAB(*)] 5 mg PO Q6H PRN 09/11/16 12/07/16 History Levothyroxine TAB* [Synthroid 100 100 mcg PO DAILY 09/11/16 12/07/16 History MCG TAB*] Omeprazole CAP (NF) [Prilosec CAP* 40 mg PO BID 09/11/16 12/07/16 History 20 MG] Probiotic Product [Probiotic Colon 1 cap PO DAILY 09/11/16 12/07/16 History Support] Sitagliptin (NF) [Januvia (NF)] 50 mg PO DAILY 09/11/16 12/07/16 History Mometasone Furoate [Nasonex] 50 mcg NA 04/27/19 History - History of Current Complaint Chief Complaint: EDNauseaVomitDiarrh Time Seen by Provider: 01/03/20 16:19 Stated Complaint: VOMITING Hx Obtained From: Patient Onset/Duration: Started Days Ago - 3, Still Present Timing: Constant Current Severity: Moderate Pain Intensity: 4 Aggravating Factor(s): Nothing Alleviating Factor(s): Nothing - Additional Pertinent History Primary Care Physician: JEANNA - Allergy/Home Medications Allergies/Adverse Reactions: Allergies Allergy/AdvReac Type Severity Reaction Status Date / Time cephalexin [From Keflex] Allergy Severe Anxiety Verified 01/03/20 16:07 codeine Allergy Intermediate Anxiety Verified 01/03/20 16:07 bupropion [From Wellbutrin] Allergy Anxiety Verified 01/03/20 16:07 dipyridamole [From Aggrenox] Allergy Anxiety Verified 01/03/20 16:07 ezetimibe [From Vytorin] Allergy Anxiety Verified 01/03/20 16:07 fenofibrate Allergy Anxiety Verified 01/03/20 16:07 Fish Containing Products Allergy Hives/Diff. Verified 01/03/20 16:07 Breathing/I tching fluoxetine Allergy Anxiety Verified 01/03/20 16:07 gabapentin Allergy Anxiety Verified 01/03/20 16:07 lecithin, soy Allergy Anxiety Verified 01/03/20 16:07 nefazodone Allergy Anxiety Verified 01/03/20 16:07 paroxetine [From Paxil] Allergy Anxiety Verified 01/03/20 16:07 Penicillins Allergy Hives Verified 01/03/20 16:07 simvastatin Allergy Anxiety Verified 01/03/20 16:07 Sulfa (Sulfonamide Allergy Anxiety Verified 01/03/20 16:07 Antibiotics) Tetanus Vaccines and Toxoid Allergy See Comment Verified 01/03/20 16:07 Home Medications: Home Medications Amitriptyline TAB* [Elavil TAB*] 25 mg PO BEDTIME 09/03/13 [History Confirmed ] Aspirin 81 mg CHEW TAB* 81 mg PO DAILY 09/03/13 [History Confirmed 12/07/16] Mecobalamin [B12 Active] 1 mg PO DAILY 09/03/13 [History Confirmed 12/07/16] Albuterol HFA INHALER* [Ventolin HFA Inhaler*] 2 puff INH Q4H PRN 09/11/16 [ History Confirmed 12/07/16] Amitriptyline TAB* [Elavil TAB*] 10 mg PO BID 09/11/16 [History Confirmed ] Diazepam TAB(*) [Valium TAB(*)] 5 mg PO Q6H PRN 09/11/16 [History Confirmed 07/15] Levothyroxine TAB* [Synthroid 100 MCG TAB*] 100 mcg PO DAILY 09/11/16 [History Confirmed 12/07/16] Omeprazole CAP (NF) [Prilosec CAP* 20 MG] 40 mg PO BID 09/11/16 [History Confirmed 12/07/16] Probiotic Product [Probiotic Colon Support] 1 cap PO DAILY 09/11/16 [History Confirmed 12/07/16] Sitagliptin (NF) [Januvia (NF)] 50 mg PO DAILY 09/11/16 [History Confirmed 12/07] Mometasone Furoate [Nasonex] 50 mcg NA 04/27/19 [History] PMH/Surg Hx/FS Hx/Imm Hx Endocrine/Hematology History: Reports: Hx Anticoagulant Therapy - asa 81mg po daily, Hx Diabetes - type 2 dm, Hx Thyroid Disease - hypothyroid Denies: Hx Sickle Cell Disease Cardiovascular History: Reports: Hx Hypercholesterolemia, Hx Hypertension Denies: Hx Congestive Heart Failure, Hx Pacemaker/ICD Comment Only: Other Cardiovascular Problems/Disorders - r Respiratory History: Reports: Hx Asthma, Hx Chronic Bronchitis, Hx Chronic Obstructive Pulmonary Disease (COPD) - emphysema, Other Respiratory Problems/ Disorders - copd GI History: Reports: Hx Gastroesophageal Reflux Disease, Hx Hiatal Hernia, Hx Irritable Bowel, Hx Jaundice - childhood, Other GI Disorders - Bleeding hemorrhoids History: Denies: Hx Renal Disease Musculoskeletal History: Reports: Hx Arthritis, Other Musculoskeletal History - fractured sternum Sensory History: Reports: Hx Contacts or Glasses - GLASSES Denies: Hx Hearing Aid Opthamlomology History: Reports: Hx Contacts or Glasses - GLASSES Neurological History: Reports: Hx Transient Ischemic Attacks (TIA) Denies: Hx Dementia, Hx Seizures, Other Neuro Impairments/Disorders Psychiatric History: Reports: Hx Anxiety, Hx Depression, Hx Panic Disorder Denies: Hx Substance Abuse - Cancer History Cancer Type, Location and Year: UTERINE 2013 Hx Chemotherapy: No - UTERINE CANCER 2013 Hx Radiation Therapy: No - Surgical History Surgery Procedure, Year, and Place: right ovary 1975, [facility], appy 1975, [facility], tubal 1975 d&c, 1975, gallbladder, 1978, [facility], cyst rght breast,20 YEARS AGO , multiple moles removed from skin Hx Anesthesia Reactions: Yes - NAUSEA WITH GALLBLADDER SURGERY - Immunization History Date of Tetanus Vaccine: allergic to vaccine Date of Influenza Vaccine: July 2016 Infectious Disease History: No Infectious Disease History: Reports: Hx Hepatitis - A CHILD, Hx Shingles, History Other Infectious Disease - Matheus Oconnell Denies: Hx Clostridium Difficile, Hx Human Immunodeficiency Virus (HIV), Hx of Known/Suspected MRSA, Hx Tuberculosis, Traveled Outside the [place] in Last 30 Days - Family History Known Family History: Positive: Cardiac Disease - [place] with stents, Diabetes, Other - CVA, TIA - Social History Alcohol Use: None Hx Substance Use: No Substance Use Type: Reports: None Hx Tobacco Use: Yes Smoking Status (MU): Former Smoker Amount Used/How Often: 1.5 PACKS A DAY Length of Time of Smoking/Using Tobacco: 45 YEARS Have You Smoked in the Last Year: No Review of Systems Negative: Sore Throat Negative: Cough Positive: Abdominal Pain, Vomiting, Diarrhea, Nausea Neurological/Mental Status: Other - light headedness, dizziness Positive: Weakness. Negative: Headache All Other Systems Reviewed And Are Negative: Yes Physical Exam - Summary Physical Exam Summary: Constitutional: Well-developed, Well-nourished, Alert. (-) Distressed Skin: Warm, Dry HENT: Normocephalic; Atraumatic; dry mucous membrane Eyes: Conjunctiva normal Neck: Musculoskeletal ROM normal neck. (-) JVD, (-) Stridor, (-) Tracheal deviation Cardio: Rhythm regular, rate normal, Heart sounds normal; Intact distal pulses; The pedal pulses are 2+ and symmetric. Radial pulses are 2+ and symmetric. (-) Murmur Pulmonary/Chest wall: Effort normal. (-) Respiratory distress, (-) Wheezes, (-) Rales Abd: Soft, mild generalized tenderness, (-) Distension, (-) Guarding, (-) Rebound Musculoskeletal: (-) Edema Lymph: (-) Cervical adenopathy Neuro: Alert, Oriented x3 Psych: Mood and affect Normal Triage Information Reviewed: Yes Vital Signs On Initial Exam: Initial Vitals Temp Pulse Resp BP Pulse Ox 96.8 F 95 16 127/78 95 01/03/20 16:05 01/03/20 16:05 01/03/20 16:05 01/03/20 16:05 01/03/20 16:05 Vital Signs Reviewed: Yes Procedures - Sedation Patient Received Moderate/Deep Sedation with Procedure: No Diagnostics - Vital Signs Vital Signs Temp Pulse Resp BP Pulse Ox 01/03/20 16:05 96.8 F 95 16 127/78 95 - Laboratory Result Diagrams: 01/03/20 16:43 01/03/20 16:43 Lab Statement: Any lab studies that have been ordered have been reviewed, and results considered in the medical decision making process. Re-Evaluation - Re-Evaluation First Eval Re-Evaluation Time: 18:06 Change: Improved - patient agrees to d/c GIGU Course/Dx - Course Course Of Treatment: 74 y/o F p/w n/v/d and mild abdominal pain since Saturday 12/30. She states she feels dehydrated, weak, dizzy, light headed. Recently had stomach bug. states they have had trouble with carbon monoxide in their house before. No headache, cough, sore throat currently. Upon physical exam, the patient has dry mucous membranes and mild generalized abdominal tenderness. Bloodwork results with no significant abnormalities. In the ED course, the patient was given normal saline fluids and Zofran. The patient feels better. She has not vomited today. Patient will be discharged home with follow up from her primary care provider on Thursday 01/04. Patient was instructed to return to Emergency Department for new or worsening symptoms. Patient understands and is agreeable to this plan. - Diagnoses Provider Diagnoses: Gastroenteritis Discharge ED - Sign-Out/Discharge Documenting (check all that apply): Patient Departure - Discharge Plan Condition: Stable Disposition: HOME Patient Education Materials: Gastroenteritis (ED) Referrals: Luis E Cohen DO [Primary Care Provider] - 01/05/20 Additional Instructions: Please follow up with your primary care provider on Sunday01/05/20. Return to the Emergency Department for changing or worsening symptoms. - Billing Disposition and Condition Condition: STABLE Disposition: Home - Attestation Statements Document Initiated by Scribe: Yes Documenting Scribe: Eloina Peres Provider For Whom Scribe is Documenting (Include Credential): Toni Whitt DO Scribe Attestation: Eloina Hardy, scribed for Toni Whitt DO on 01/03/20 at 2047. Scribe Documentation Reviewed: Yes Provider Attestation: The documentation as recorded by the scribe, Eloina Peres accurately reflects the service I personally performed and the decisions made by me, Toni Whitt, DO Status of Scribe Document: Viewed
[2020-01-03] MEDS ORDERED: Ondansetron INJ* 2 MG/ML VIAL IV ONE (16:42)
[2020-01-03 16:48] LABS: ABS Eosinophils 0.1 10^3/ul (0-0.6); ABS Lymphocytes 1.2 10^3/ul (1.0-4.8); ABS Monocytes 0.8 10^3/ul (0-0.8); ABS Neutrophils 3.8 10^3/ul (1.5-7.7); Eosinophil % 2.4 %; Hematocrit 45 % (35-47); Hemoglobin 15.8 g/dL (12.0-16.0); Lymphocyte % 19.8 %; Mean Corpuscular HGB Conc 35 g/dL (31-36); Mean Corpuscular Hemoglobin 31 pg (27-31); Mean Corpuscular Volume 89 fL (80-97); Mean Platelet Volume 8.7 fL (7.4-10.4); Nucleated Red Blood Cells % 0.1; Platelet Count 248 10^3/uL (150-450); Red Blood Count 5.01 10^6 /uL (3.70-4.87); Red Cell Distribution Width 14 % (10-15); White Blood Count 5.8 10^3/uL (3.5-10.8)
[2020-01-03 17:11] LABS: Albumin 3.9 g/dL (3.2-5.2); Albumin/Globulin Ratio 1.3 (1-3); BUN/Creatinine Ratio 15.2 (8-20); Calcium 9.4 mg/dL (8.6-10.3); EGFR African American 62.2 (>60); EGFR Non-African American 51.4 (>60); Potassium 3.4 mmol/L (3.5-5.0); Total Bilirubin 0.4 mg/dL (0.2-1.0); Total Protein 6.9 g/dL (6.4-8.9)
[2020-01-03 18:18] VITALS: BP 127/86
== END 2020-01-03 18:17 | disposition home or self-care (01) ==
LOC: ED 16:00
DX: K52.9 Noninfective gastroenteritis and colitis, unspecified (principal); E11.9 Type 2 diabetes mellitus without complications; Z79.84 Long term (current) use of oral hypoglycemic drugs; E03.9 Hypothyroidism, unspecified; I10 Essential (primary) hypertension; J44.9 Chronic obstructive pulmonary disease, unspecified; K21.9 Gastro-esophageal reflux disease without esophagitis; F32.9 Major depressive disorder, single episode, unspecified; Z79.82 Long term (current) use of aspirin; Z79.51 Long term (current) use of inhaled steroids; Z79.899 Other long term (current) drug therapy; Z88.1 Allergy status to other antibiotic agents; Z88.5 Allergy status to narcotic agent; Z88.0 Allergy status to penicillin; Z91.013 Allergy to seafood; Z88.2 Allergy status to sulfonamides; Z88.7 Allergy status to serum and vaccine; Z88.8 Allergy status to other drugs, medicaments and biological substances; Z91.09 Other allergy status, other than to drugs and biological substances; Z87.891 Personal history of nicotine dependence
CPT/HCPCS: 36415; 80053; 85025; 96374; 99282; J2405

== ENCOUNTER 2024-09-01 20:29 | Observation (INO) ==
[2024-09-01 21:44] LABS: ABS Basophils 0.1 10^3/uL (0.0-0.1); ABS Eosinophils 0.2 10^3/uL (0.0-0.5); ABS Lymphocytes 1.8 10^3/uL (1.0-4.8); ABS Monocytes 0.7 10^3/uL (0.0-0.9); ABS Neutrophils 5.6 10^3/uL (1.5-7.6); ABS Nucleated RBC 0.01 10^3/ul; Eosinophil % 2.6 %; Hemoglobin 15.2 g/dL (11.5-14.3); Mean Corpuscular Hemoglobin 32.4 pg (27-33); Mean Corpuscular Hgb Conc 34.5 g/dL (31-36); Mean Corpuscular Volume 94.1 fL (80-97); Nucleated Red Blood Cells % 0.1 %/100WBC (0.0-0.8); Platelet Count 272 10^3/uL (150-450); Red Blood Count 4.67 10^6/uL (3.63-4.92); Red Cell Distribution Width 13.2 % (12-17); White Blood Count 8.4 10^3/uL (3.8-11.8)
[2024-09-01 22:26] LABS: Albumin 4.4 g/dL (3.2-5.2); Albumin/Globulin Ratio 1.3 (1-3); C Reactive Protein 13.37 mg/L (<8.01); Calcium 10.3 mg/dL (8.6-10.3); Creatinine, Serum 1.25 mg/dL (0.51-0.95); Globulin 3.3 g/dL (2-4); Potassium 4.6 mmol/L (3.5-5.0); Total Bilirubin 0.4 mg/dL (0.2-1.0); Total Protein 7.7 g/dL (6.4-8.9); eGFR CKD-EPI 44.1 (>60)
[2024-09-01] MEDS: Iodixanol 320 (CONTRAST) 100 ML SDV IV ONE (23:02)
[2024-09-02 07:43] LABS: HDL Cholesterol 53.8 mg/dL
[2024-09-02 07:54] LABS: Anion Gap 9 mmol/L (2-16); Blood Urea Nitrogen 16 mg/dL (6-24); CO2 Carbon Dioxide 27 mmol/L (22-32); Calcium 9.6 mg/dL (8.6-10.3); Chloride 101 mmol/L (101-111); Creatinine, Serum 1.01 mg/dL (0.51-0.95); Glucose 108 mg/dL (70-100); Sodium 137 mmol/L (135-145)
[2024-09-02] MEDS: SitaGLIPtin 25mg TAB (NF) 25 MG TAB PO SCH (09:59)
[2024-09-02] MEDS ORDERED: Lorazepam PYXIS KEY PRN (17:10)
[2024-09-02] MEDS: LORazepam 2 mg VIAL 1 ml IV PUSH PRN (19:55)
[2024-09-02] MEDS: Enoxaparin 40 MG/0.4 ML SYR SUBCUT SCH (21:27)
[2024-09-03 07:03] LABS: ABS Basophils 0.1 10^3/uL (0.0-0.1); ABS Eosinophils 0.4 10^3/uL (0.0-0.5); ABS Lymphocytes 1.8 10^3/uL (1.0-4.8); ABS Monocytes 0.8 10^3/uL (0.0-0.9); ABS Neutrophils 4.6 10^3/uL (1.5-7.6); Hematocrit 39.4 % (35-45); Hemoglobin 13.7 g/dL (11.5-14.3); Lymphocyte % 23.5 %; Mean Corpuscular Hemoglobin 32.5 pg (27-33); Mean Corpuscular Hgb Conc 34.8 g/dL (31-36); Mean Corpuscular Volume 93.4 fL (80-97); Mean Platelet Volume 8.9 fL (7.5-11.2); Platelet Count 241 10^3/uL (150-450); Red Blood Count 4.22 10^6/uL (3.63-4.92); Red Cell Distribution Width 13.4 % (12-17); White Blood Count 7.6 10^3/uL (3.8-11.8)
[2024-09-03 07:30] LABS: Calcium 9.5 mg/dL (8.6-10.3); Creatinine, Serum 1.09 mg/dL (0.51-0.95); Potassium 4.2 mmol/L (3.5-5.0)
[2024-09-03 08:29] LABS: C Reactive Protein 13.7 mg/L (<8.01)
[2024-09-03 10:09] LABS: Erythrocyte Sed Rate 22 mm/Hr (0-29)
[2024-09-03 13:14] VITALS: BP 131/94
== END 2024-09-03 17:30 | disposition home health service (06) ==
LOC: EDHOLD 20:29 → ED 20:29 → SUATTDRO 09-02 00:42 → MEDTELE 09-02 02:44
PROVIDERS: ADMIT Hospitalist; ATTEND Internal Medicine